=== PATIENT | male | born 1995 | race Hispanic/Latino ===

== ENCOUNTER 2021-10-23 22:27 | Emergency (ER) | payer SELFPAY ==
[2021-10-24 00:36] VITALS: BP 108/64
--- NOTE | 2021-10-24 00:51 | Emergency Department Report ---
History of Present Illness - General Chief Complaint: Overdose Stated Complaint: OD (OVERDOSE) Time Seen by Provider: 10/24/21 00:46 Source: patient, EMS Mode of arrival: Stretcher Limitations: No Limitations - History of Present Illness Initial Comments: 26-year-old male brought in by EMS with unresponsiveness alcohol after smoking marijuana. Patient reported that he believed that the marijuana that he purchased from somebody was laced with methamphetamine that caused the symptoms. he said he had to give him narcan to revive him. He denies any symptoms at this time. No other modifying or associated factors reported. - Related Data Allergies Allergy/AdvReac Type Severity Reaction Status Date / Time No Known Allergies Allergy Unverified 10/24/21 00:36 ED Review of Systems ROS: Stated complaint: OD (OVERDOSE) Other details as noted in HPI Comment: All other systems reviewed and negative Cardiovascular: other (unresponsiveness) Gastrointestinal: nausea. denies: vomiting ED Past Medical Hx - Past Medical History Previous Medical History?: No - Surgical History Past Surgical History?: No - Social History Smoking Status: Current Every Day Smoker Substance Use Type: Marijuana ED Physical Exam - General Limitations: No Limitations General appearance: alert, in no apparent distress - Head Head exam: Present: atraumatic, normal inspection - Eye Eye exam: Present: normal appearance Pupils: Present: normal accommodation - ENT ENT exam: Present: normal exam, normal orophraynx, mucous membranes moist - Neck Neck exam: Present: normal inspection, full ROM. Absent: tenderness, meningismus - Respiratory Respiratory exam: Present: normal lung sounds bilaterally. Absent: respiratory distress, accessory muscle use - Cardiovascular Cardiovascular Exam: Present: regular rate, normal rhythm, normal heart sounds - GI/Abdominal GI/Abdominal exam: Present: soft, normal bowel sounds. Absent: distended, tenderness - Extremities Exam Extremities exam: Present: normal inspection, full ROM, normal capillary refill. Absent: tenderness, pedal edema - Back Exam Back exam: Absent: tenderness - Neurological Exam Neurological exam: Present: alert, oriented X3 - Psychiatric Psychiatric exam: Present: normal affect, normal mood - Skin Skin exam: Present: warm, normal color ED Course Vital Signs 10/23/21 10/24/21 22:27 00:14 Temperature 98 F 97 F L Pulse Rate 89 79 Respiratory 18 16 Rate Blood Pressure 108/64 Blood Pressure 106/62 [Right] O2 Sat by Pulse 96 96 Oximetry - Reevaluation(s) Reevaluation #1: 10/24/21 04:58 pt reports feeling much better and wanted to be discharged home ED Medical Decision Making - Lab Data Result diagrams: 10/24/21 00:57 10/24/21 00:57 - Medical Decision Making here with likely OD on some kind of Opoioid --after smoking marijuana-- will go ahead and order routine psych labs including UDS and continue to monitor-- Critical care attestation.: If time is entered above; I have spent that time in minutes in the direct care of this critically ill patient, excluding procedure time. ED Disposition Clinical Impression: Accidental overdose Qualifiers: Encounter type: initial encounter Qualified Code(s): T50.901A - Poisoning by unspecified drugs, medicaments and biological substances, accidental (unintentional), initial encounter Disposition: 01 HOME / SELF CARE / HOMELESS Is pt being admited?: No Does the pt Need Aspirin: No Condition: Stable Instructions: Accidental Drug Poisoning, Adult, Preventing Poisoning, Adult Additional Instructions: Avoid illicit drug use for your overall health Increase your daily fluid to help your hydration Call and schedule follow-up with your primary doctor/psychiatric in the next 3 to 5 days for progress Call or return to emergency if your symptoms worsen Referrals: ETHEL SULLIVAN MD [Primary Care Provider] - 3-5 Days Time of Disposition: 04:59
[2021-10-24 01:16] LABS: Basophils % (Auto) 0.1 % (0.0-1.8); Hemoglobin 13.4 gm/dl (11.8-15.2); Lymphocytes # (Auto) 1.4 K/mm3 (1.2-5.4); Lymphocytes % (Auto) 9.2 % (13.4-35.0); Mean Corpuscular HGB Conc 33 % (32-34); Mean Corpuscular Volume 94 fl (84-94); Monocytes # (Auto) 0.9 K/mm3 (0.0-0.8); Monocytes % (Auto) 5.8 % (0.0-7.3); Platelet Count 191 K/mm3 (140-440); Red Blood Count 4.37 M/mm3 (3.65-5.03); Red Cell Distribution Width 13.1 % (13.2-15.2)
[2021-10-24 01:36] LABS: BUN/Creatinine Ratio 22; Blood Urea Nitrogen 13 mg/dL (9-20); Calcium 9.1 mg/dL (8.4-10.2); Hemolysis Index 6
[2021-10-24 05:32] LABS: Color,Urine Yellow (Yellow)
[2021-10-24 05:33] LABS: Bilirubin,Urine Negative (Negative); Blood,Urine Negative (Negative); Protein,Urine <15 mg/dL mg/dL (Negative); Urobilinogen,Urine < 2.0 mg/dL (<2.0)
[2021-10-24 05:34] LABS: Mucus,Urine 1+ /HPF
[2021-10-24 05:43] LABS: Amphetamine Screen,Urine PRESUMPTIVE NEGATIVE; Benzodiazepines Screen,Urine PRESUMPTIVE NEGATIVE; Cannabinoid Screen,Urine PRESUMPTIVE POSITIVE; Cocaine Screen,Urine PRESUMPTIVE NEGATIVE; Methadone Screen,Urine PRESUMPTIVE NEGATIVE; Opiate Screen,Urine PRESUMPTIVE NEGATIVE
== END 2021-10-24 05:38 | disposition home or self-care (01) ==
LOC: ED 22:27
DX: T65.91XA Toxic effect of unspecified substance, accidental (unintentional), initial encounter (principal); Z79.899 Other long term (current) drug therapy; Y92.89 Other specified places as the place of occurrence of the external cause
CPT/HCPCS: 36415; 80048; 80307; 80320; 81001; 85025; 99284; G0480